=== PATIENT | male | born 1965 | race Caucasian/White ===

== ENCOUNTER 2023-07-27 19:34 | Emergency (ER) | payer BC ==
[2023-07-27] MEDS ORDERED: Ondansetron PF 4 MG/2 ML Vial ONE (20:30)
[2023-07-27] MEDS ORDERED: Acetaminophen 500 MG TAB ONE (20:31)
[2023-07-27 21:27] LABS: #Basophils 0.1 10x3/uL (0.0-0.2); #Monocytes 0.5 10x3/uL (0.0-1.1); #Neutrophils 14.7 10x3/uL (1.5-8.4); %Basophils 0.4 % (0.0-2.0); %Eosinophils 0.1 % (0.0-6.0); %Lymphocytes 4.4 % (18.0-47.0); %Monocytes 3.2 % (0.0-10.0); %Neutrophils 91.5 % (40.0-75.0); Hematocrit 47.9 % (38.8-50.0); Hemoglobin 15.6 g/dL (13.5-17.5); Mean Corpuscular HGB CONC 32.6 g/dL (32.0-36.0); Mean Corpuscular Hemoglobin 28.2 pg (27.0-33.0); Mean Corpuscular Volume 86.5 fl (81.2-95.1); Mean Platelet Volume 10.3 fl (7.4-10.4); Platelet Count 272 10x3/uL (150-450); RBC Distribution Width 12.4 % (11.5-14.5); Red Blood Cell (RBC) Count 5.54 10x6/uL (4.32-5.72); White Blood Cell (WBC) Count 16.1 10x3/uL (3.5-10.5)
[2023-07-27 21:41] LABS: ALT (SGPT) 29 U/L (8-55); AST (SGOT) 23 U/L (5-34); Albumin 4.2 g/dL (3.5-5.0); Alkaline Phosphatase 100 U/L (40-110); Anion Gap 17 mmol/L (10-20); BUN (Urea Nitrogen) 16 mg/dL (8.4-25.7); Bilirubin, Total 0.5 mg/dL (0.2-1.2); Calc. Creatinine Clearance 0 mL/min (70-130); Calcium 8.7 mg/dL (7.8-10.44); Carbon Dioxide 22 mmol/L (22-29); Chloride 105 mmol/L (98-107); Estimated GFR 104; Globulin 2.8 g/dL (2.4-3.5); Glucose 108 mg/dL (70-105); Lipase 7 U/L (8-78); Potassium 4.4 mmol/L (3.5-5.1); Sodium 140 mmol/L (136-145)
[2023-07-27 21:48] LABS: Troponin I 0.012 ng/mL (< 0.028)
[2023-07-27 22:01] LABS: SARS-CoV-2 NAA Rapid Test Not Detected (NotDetected)
[2023-07-27] MEDS ORDERED: Metoclopramide HCl 10 MG/2 ML VIAL IVPB SCH (23:00)
[2023-07-27] MEDS ORDERED: diphenhydrAMINE 50 MG/ML VIAL ONE (23:38)
[2023-07-27] MEDS ORDERED: Ketorolac Tromethamine 30 MG/ML VIAL ONE (23:39)
== END 2023-07-28 01:00 | disposition home or self-care (01) ==
LOC: CSHERS 19:34
DX: G43.909 Migraine, unspecified, not intractable, without status migrainosus (principal); I10 Essential (primary) hypertension; Z20.822 Contact with and (suspected) exposure to COVID-19; E78.5 Hyperlipidemia, unspecified; Z79.899 Other long term (current) drug therapy
CPT/HCPCS: 70450; 71045; 80053; 83690; 84484; 85025; 93005; 96365; 96375; J1200; J1885; J2405